=== PATIENT | male | born 1990 | race Caucasian/White ===

== ENCOUNTER 2016-09-04 19:10 | Emergency (ER) | payer OTHER ==
[~2016-09-04] VITALS: Ht 167.6 cm; Wt 72.1 kg
[2016-09-04] MEDS ORDERED: PEPC1TAB4 PO (21:29)
[2016-09-04] MEDS ORDERED: FAMOTIDINE 20 MG TAB PO ONE (21:30)
[2016-09-04] MEDS ORDERED: GI COCKTAIL 50ML BTL(HYOSCYAMINE/MAALOX/LIDOCAINE VISCOUS)(1:3:1) PO ONE (21:30)
[2016-09-04 21:33] VITALS: BP 139/89
== END 2016-09-04 21:38 | disposition home or self-care (01) ==
LOC: M ED 20:17
DX: K29.00 Acute gastritis without bleeding (principal); K21.9 Gastro-esophageal reflux disease without esophagitis; Z87.891 Personal history of nicotine dependence; Z79.899 Other long term (current) drug therapy; Z91.89 Other specified personal risk factors, not elsewhere classified; Z91.013 Allergy to seafood

== ENCOUNTER 2016-09-06 13:37 | Emergency (ER) | payer OTHER ==
[~2016-09-06] VITALS: Ht 167.6 cm; Wt 71.2 kg
[~2016-09-06 13:37] MED LIST: PEPC1TAB4 PO
[2016-09-06] MEDS ORDERED: [UNRECOGNIZED DRUG - REMARK] (13:50)
[2016-09-06] MEDS ORDERED: [UNRECOGNIZED DRUG - REMARK] (13:50)
[2016-09-06] MEDS ORDERED: [UNRECOGNIZED DRUG - REMARK] (13:50)
[2016-09-06] MEDS ORDERED: [UNRECOGNIZED DRUG - REMARK] (13:50)
[2016-09-06 16:23] LABS: BASO % 0.4 % (0.0-1.0); EOS # 0.2 K/mm3 (0.0-0.50); LARGE UNSTAINED CELL # 0.1 K/mm3 (0.0-0.4); LARGE UNSTAINED CELL % 1.1 % (0.0-4.0); LYMPH # 1.9 K/mm3 (1.5-6.5); LYMPH % 22.2 % (24.0-44.0); MEAN CORPUSCULAR HEMOGLOBIN 31.3 pg (27.0-33.0); MEAN CORPUSCULAR HGB CONC 35.6 g/dl (32.0-36.5); MEAN CORPUSCULAR VOLUME 87.9 fl (80.0-96.0); MONO # 0.5 K/mm3 (0.0-0.8); MONO % 5.5 % (0.0-5.0); NEUTROPHILS # 5.7 K/mm3 (1.8-7.7); NEUTROPHILS % 68.7 % (36.0-66.0); PLATELET COUNT, AUTOMATED 207 k/mm3 (150-450); RED CELL DISTRIBUTION WIDTH 11.8 % (11.5-14.5); WHITE BLOOD COUNT 8.3 K/mm3 (4.0-10.0)
--- NOTE | 2016-09-06 16:43 | REP ---
RIGHT UPPER QUADRANT ULTRASOUND: Real-time sonographic evaluation of the right upper quadrant is performed. Gallbladder demonstrates no evidence of intraluminal sludge or calculi, wall thickening, or pericholecystic fluid. There is no intrahepatic or extrahepatic biliary dilatation. Common bile duct measure 4 mm in diameter. Liver and pancreas demonstrate homogenous echotexture with no gross mass, pancreas not optimally seen due to overlying bowel gas. Right kidney demonstrates no hydronephrosis or nephrolithiasis with normal size and 9.9 cm in length. IMPRESSION: Negative right upper quadrant ultrasound. Signed by Jarett Matthews MD 09/07/2016 12:56 P
[2016-09-06 16:46] LABS: ALBUMIN 4.6 GM/DL (3.2-5.2); ALBUMIN/GLOBULIN RATIO 1.48 (1.00-1.93); ALKALINE PHOSPHATASE 117 U/L (45-117); ALT/SGPT 23 U/L (12-78); AMYLASE 29 U/L (25-115); ANION GAP 7 MEQ/L (8-16); AST/SGOT 16 U/L (15-37); BILIRUBIN,DIRECT 0.2 MG/DL (0.0-0.2); BLOOD UREA NITROGEN 17 MG/DL (7-18); CALCIUM LEVEL 9.2 MG/DL (8.5-10.1); CARBON DIOXIDE LEVEL 29 MEQ/L (21-32); CHLORIDE LEVEL 103 MEQ/L (98-107); CREATININE FOR GFR 1.04 MG/DL (0.70-1.30); GLOMERULAR FILTRATION RATE > 60.0 (>60); GLUCOSE, FASTING 83 MG/DL (70-105); POTASSIUM SERUM 4.1 MEQ/L (3.5-5.1); SODIUM LEVEL 139 MEQ/L (136-145); TOTAL PROTEIN 7.7 GM/DL (6.4-8.2)
--- NOTE | 2016-09-06 17:05 | REP ---
PA and lateral chest: There are no comparison studies. The lung law are clear. The cardiac size is normal The zina, mediastinum, and bony thorax are unremarkable. Impression: Negative PA and lateral chest. There is no free subdiaphragmatic air. Signed by Jarett Santana MD 09/06/2016 04:56 P
[2016-09-06] MEDS ORDERED: SUCR1SS PO (17:23)
[2016-09-06 17:33] VITALS: BP 139/76
== END 2016-09-06 17:37 | disposition home or self-care (01) ==
LOC: M ED 16:06
DX: R13.10 Dysphagia, unspecified (principal); F41.9 Anxiety disorder, unspecified; F32.9 Major depressive disorder, single episode, unspecified; Z79.899 Other long term (current) drug therapy; Z91.89 Other specified personal risk factors, not elsewhere classified; Z91.013 Allergy to seafood

== ENCOUNTER → 2016-12-05 | Outpatient (CLI) | payer OTHER ==
[~2016-12-05] VITALS: Ht 168.9 cm; Wt 65.8 kg
[~2016-12-05] MED LIST changes: +LIDOCAINE 2% INJ 100 MG/5 ML SDV (FOR ANES.) As Ordered ONE; +NS 1,000 ML IV ONE; +PROPOFOL 500 MG/50 ML VIAL As Ordered ONE; +SUCR1SS PO; +[UNRECOGNIZED DRUG - REMARK]; +[UNRECOGNIZED DRUG - REMARK]; +[UNRECOGNIZED DRUG - REMARK]; +[UNRECOGNIZED DRUG - REMARK]
--- NOTE | 2016-12-05 13:27 | ROOR ---
Patient Name: Lawrence May Procedure Date: 12/05/2016 1:09 PM Date of : 1990 Age: 26 Room: [facility] Gender: Male Note Status: Finalized Procedure: Upper GI endoscopy + Balloon Dilatation + Biopsies Indications: Dysphagia, Chest pain (non cardiac) Providers: Wil Warner MD Referring MD: MARGE CASTANEDA MD Requesting Provider: Medicines: Monitored Anesthesia Care Complications: No immediate complications. Procedure: Pre-Anesthesia Assessment: - The heart rate, respiratory rate, oxygen saturations, blood pressure, adequacy of pulmonary ventilation, and response to care were monitored throughout the procedure. The Endoscope was introduced through the mouth, and advanced to the second part of duodenum. The upper GI endoscopy was accomplished without difficulty. The patient tolerated the procedure well. Findings: The Z-line was regular and was found 38 cm from the incisors. Mucosal changes including ringed esophagus and longitudinal furrows were found in the lower third of the esophagus. Biopsies were taken with a cold forceps for histology. A TTS dilator was passed through the scope. Dilation with an 18-19-20 mm balloon dilator was performed to 20 mm at the gastroesophageal junction. The exam of the duodenum was otherwise normal. Impression: - Z-line regular, 38 cm from the incisors. - Esophageal mucosal changes suggestive of eosinophilic esophagitis. Biopsied. - Dilation performed at the gastroesophageal junction. - The examination was otherwise normal. Recommendation: - Patient has a contact number available for emergencies. The signs and symptoms of potential delayed complications were discussed with the patient. Return to normal activities tomorrow. Written discharge instructions were provided to the patient. - Resume previous diet. - Discharge patient to home. - Follow an antireflux regimen. - Continue present medications. - Await pathology results. - Telephone GI clinic for pathology results in 1 week. - Check Portal Online for Path Results.([email or web address] - Return to referring physician. - The findings and recommendations were discussed with the patient's family. Wil Warner MD Wil Warner MD 12/05/2016 1:26:15 PM This report has been signed electronically. Number of Addenda: 0 Note Initiated On: 12/05/2016 1:09 PM Estimated Blood Loss: Estimated blood loss: none.
[2016-12-05 14:00] VITALS: BP 109/64
== END | disposition home or self-care (01) ==
LOC: M OPP 11:43
PROVIDERS: ATTEND Internal Medicine Gastroenterology
DX: R13.10 Dysphagia, unspecified (principal); R07.89 Other chest pain; K20.9 Esophagitis, unspecified; R12 Heartburn; F32.9 Major depressive disorder, single episode, unspecified; F41.9 Anxiety disorder, unspecified; L30.9 Dermatitis, unspecified; R47.02 Dysphasia; F17.290 Nicotine dependence, other tobacco product, uncomplicated; Z91.013 Allergy to seafood; Z88.3 Allergy status to other anti-infective agents; Z79.899 Other long term (current) drug therapy; Z80.3 Family history of malignant neoplasm of breast; Z80.0 Family history of malignant neoplasm of digestive organs